=== PATIENT | male | born 1995 | race Caucasian/White ===

== ENCOUNTER 2022-11-10 07:36 | Emergency (ER) | payer MEDICAID, OTHER ==
[~2022-11-10] VITALS: Ht 172.7 cm; Wt 68.2 kg
[2022-11-10 08:55] LABS: HEMATOCRIT 41.5 % (42.0-52.0); MEAN CORPUSCULAR HEMOGLOBIN 30.3 pg (27.0-33.0); MEAN CORPUSCULAR HGB CONC 33.7 g/dl (32.0-36.5); MEAN CORPUSCULAR VOLUME 89.8 fl (80.0-96.0); PLATELET COUNT, AUTOMATED 276 10^3/uL (150-450); RED BLOOD COUNT 4.62 10^6/uL (4.30-6.10); WHITE BLOOD COUNT 11.3 10^3/uL (4.0-10.0)
[2022-11-10 09:17] LABS: ETHYL ALCOHOL (ETHANOL) 0.003 % (0.000-0.010)
[2022-11-10 09:18] LABS: ACETAMINOPHEN LEVEL < 2.0 UG/ML (10.0-20.0)
[2022-11-10 09:19] LABS: ALBUMIN 4.4 G/DL (3.2-5.2); ALKALINE PHOSPHATASE 48 U/L (46-116); ALT/SGPT 28 U/L (7.0-40); AST/SGOT 38 U/L (<34); BILIRUBIN,DIRECT 0.3 MG/DL (<0.4); BILIRUBIN,TOTAL 0.8 MG/DL (0.3-1.2); BLOOD UREA NITROGEN 15 MG/DL (9-23); CALCIUM LEVEL 9.7 MG/DL (8.5-10.1); CARBON DIOXIDE LEVEL 26 MMOL/L (20-31); CHLORIDE LEVEL 108 MMOL/L (98-107); CREATININE FOR GFR 0.81 MG/DL (0.70-1.30); GLOMERULAR FILTRATION RATE > 60.0 (>60); GLUCOSE, FASTING 95 MG/DL (60-100); POTASSIUM SERUM 4.2 MMOL/L (3.5-5.1); SALICYLATE LEVEL < 3.0 MG/DL (<30); SODIUM LEVEL 141 MMOL/L (136-145); TOTAL PROTEIN 7.3 G/DL (5.7-8.2)
[2022-11-10 09:21] LABS: THYROID STIMULATING HORMONE 1.822 uIU/ML (0.55-4.78)
[2022-11-10 12:38] LABS: BARBITURATES URINE NEGATIVE (NEGATIVE); BENZODIAZEPINES URINE NEGATIVE (NEGATIVE); COCAINE METABOLITE URINE NEGATIVE (NEGATIVE); METHADONE URINE NEGATIVE (NEGATIVE); OPIATES URINE NEGATIVE (NEGATIVE); PHENCYCLIDINE URINE NEGATIVE (NEGATIVE)
[2022-11-10 12:39] LABS: AMPHETAMINES LEVEL URINE POSITIVE (NEGATIVE); CANNABINOIDS URINE POSITIVE (NEGATIVE)
[2022-11-11] MEDS ORDERED: IBUP200C28 PO (08:24)
[2022-11-11] MEDS ORDERED: HOME MED LIST COMPLETE! XX SCH (08:25)
[2022-11-11] MEDS ORDERED: ACETAMINOPHEN 325 MG TAB PO ONE (16:40)
[2022-11-11 17:58] VITALS: BP 133/75; TEMP 97.6; O2SAT 100
== END 2022-11-11 18:02 | disposition home or self-care (01) ==
LOC: M ED 07:36
DX: F19.159 Other psychoactive substance abuse with psychoactive substance-induced psychotic disorder, unspecified (principal); F15.10 Other stimulant abuse, uncomplicated; F12.10 Cannabis abuse, uncomplicated; Z79.1 Long term (current) use of non-steroidal anti-inflammatories (NSAID)

== ENCOUNTER 2023-06-16 15:49 | Inpatient (IN) | payer OTHER ==
[~2023-06-16] VITALS: Ht 180.3 cm; Wt 68.4 kg
[~2023-06-16 15:49] MED LIST: IBUP200C28 PO
[2023-06-16 16:45] LABS: HEMATOCRIT 44.5 % (42.0-52.0); HEMOGLOBIN 14.9 g/dl (13.5-17.5); MEAN CORPUSCULAR HEMOGLOBIN 29.7 pg (27.0-33.0); MEAN CORPUSCULAR HGB CONC 33.5 g/dl (32.0-36.5); MEAN CORPUSCULAR VOLUME 88.8 fl (80.0-96.0); PLATELET COUNT, AUTOMATED 320 10^3/uL (150-450); RED BLOOD COUNT 5.01 10^6/uL (4.30-6.10); WHITE BLOOD COUNT 9.2 10^3/uL (4.0-10.0)
[2023-06-16 17:03] LABS: BARBITURATES URINE NEGATIVE (NEGATIVE); BENZODIAZEPINES URINE NEGATIVE (NEGATIVE); COCAINE METABOLITE URINE NEGATIVE (NEGATIVE); METHADONE URINE NEGATIVE (NEGATIVE)
[2023-06-16 17:04] LABS: OPIATES URINE NEGATIVE (NEGATIVE); PHENCYCLIDINE URINE NEGATIVE (NEGATIVE)
[2023-06-16 17:07] LABS: AMPHETAMINES LEVEL URINE POSITIVE (NEGATIVE); CANNABINOIDS URINE POSITIVE (NEGATIVE)
[2023-06-16 17:09] LABS: ETHYL ALCOHOL (ETHANOL) 0.006 % (0.000-0.010)
[2023-06-16 17:11] LABS: ALBUMIN 4.4 G/DL (3.2-5.2); ALKALINE PHOSPHATASE 82 U/L (46-116); ALT/SGPT 27 U/L (7.0-40); AST/SGOT 34 U/L (<34); BILIRUBIN,DIRECT 0.2 MG/DL (<0.4); BILIRUBIN,TOTAL 0.8 MG/DL (0.3-1.2); BLOOD UREA NITROGEN 15 MG/DL (9-23); CALCIUM LEVEL 10.1 MG/DL (8.5-10.1); CARBON DIOXIDE LEVEL 28 MMOL/L (20-31); CHLORIDE LEVEL 104 MMOL/L (98-107); CREATININE FOR GFR 0.73 MG/DL (0.70-1.30); GLOMERULAR FILTRATION RATE > 60.0 (>60); GLUCOSE, FASTING 106 MG/DL (60-100); POTASSIUM SERUM 3.8 MMOL/L (3.5-5.1); SALICYLATE LEVEL < 3.0 MG/DL (<30); SODIUM LEVEL 139 MMOL/L (136-145); TOTAL PROTEIN 8.1 G/DL (5.7-8.2)
[2023-06-16 17:13] LABS: THYROID STIMULATING HORMONE 0.951 uIU/ML (0.55-4.78)
[2023-06-16] MEDS ORDERED: SUMA25TA3 PO (17:16)
[2023-06-16] MEDS ORDERED: CETI-24 PO (17:16)
[2023-06-16] MEDS ORDERED: HOME MED LIST COMPLETE! XX SCH (17:20)
[2023-06-16] MEDS: NICOTINE 14 MG/24 HR TRANSDERMAL TD ONE (17:34)
[2023-06-16] MEDS: LORazepam 2 MG TAB PO STA (21:42)
[2023-06-17] MEDS ORDERED: MAALOX 30 ML SUSP *UDC PO PRN (15:45)
[2023-06-17] MEDS ORDERED: diphenhydrAMINE 25MG CAP PO PRN (15:45)
[2023-06-17] MEDS ORDERED: MOM 30ML SUSPENSION UDC PO PRN (15:45)
[2023-06-17] MEDS: OLANZapine ORAL DISINTEGRATING TAB 5MG PO PRN (16:25)
[2023-06-17] MEDS: IBUPROFEN 400MG TAB PO PRN (16:28)
[2023-06-17] MEDS: NICOTINE 14 MG/24 HR TRANSDERMAL TD SCH (17:08)
[2023-06-18] MEDS ORDERED: SUMAtriptan SUCCINATE 25 MG TAB PO PRN (08:10)
[2023-06-18] MEDS: ACETAMINOPHEN TAB 650MG DOSE (2X325MG) PO PRN (11:55)
[2023-06-18 14:18] VITALS: BP 133/77; TEMP 98.7; O2SAT 98
[2023-06-18] MEDS: traZODone 50 MG TAB PO PRN (20:16)
[2023-06-18] MEDS: NICOTINE 21MG/24HR 1 EA TRANSDERMAL TD SCH (20:34)
[2023-06-19 06:48] VITALS: BP 121/69; TEMP 97.3; O2SAT 99
[2023-06-19 16:12] VITALS: BP 146/71; TEMP 98.1; O2SAT 100
[2023-06-19] MEDS: risperiDONE 3 MG TAB PO SCH (20:08)
[2023-06-20 16:21] VITALS: BP 131/64; TEMP 98.6; O2SAT 100
[2023-06-21 06:45] VITALS: BP 110/54; TEMP 97.6; O2SAT 100
[2023-06-21 07:02] LABS: CHOLESTEROL RISK RATIO 4.5 (<5); HDL CHOLESTEROL 37.5 MG/DL (>40); LDL CHOLESTEROL 106.3 MG/DL (<100); NON-HDL-C 131.5 MG/DL
[2023-06-21 16:11] VITALS: BP 128/78; TEMP 98.5; O2SAT 97
[2023-06-21 16:20] VITALS: BP 134/65; TEMP 97.9; O2SAT 100
[2023-06-22 06:42] VITALS: BP 122/58; TEMP 98.1; O2SAT 98
[2023-06-22] MEDS ORDERED: BENZTROPINE 1 MG TAB PO PRN (09:40)
[2023-06-22 16:24] VITALS: BP 134/82; TEMP 98.4; O2SAT 100
[2023-06-23 06:24] VITALS: BP 116/67; TEMP 97; O2SAT 98
[2023-06-23] MEDS ORDERED: NICO21PAT TD (09:21)
[2023-06-23] MEDS ORDERED: BENZ1TAB5 PO (09:21)
[2023-06-23] MEDS ORDERED: RISP3TAB20 PO (09:21)
[2023-06-23] MEDS ORDERED: TRAZ-252 PO (09:22)
== END 2023-06-23 13:25 | disposition home or self-care (01) | DRG 751 ==
LOC: M ED 15:49 → M ED INP 06-17 15:44 → M PSY 06-18 14:51
PROVIDERS: ADMIT Student in an Organized Health Care Education/Training Program; ATTEND Student in an Organized Health Care Education/Training Program
DX: F29 Unspecified psychosis not due to a substance or known physiological condition (principal); R45.850 Homicidal ideations; R45.851 Suicidal ideations; F12.90 Cannabis use, unspecified, uncomplicated; F17.200 Nicotine dependence, unspecified, uncomplicated; F15.90 Other stimulant use, unspecified, uncomplicated; Z79.899 Other long term (current) drug therapy; F90.9 Attention-deficit hyperactivity disorder, unspecified type; F41.9 Anxiety disorder, unspecified

== ENCOUNTER 2024-11-14 20:14 | Emergency (ER) | payer MEDICAID, OTHER ==
[~2024-11-14] VITALS: Ht 172.7 cm; Wt 86.4 kg
[~2024-11-14 20:14] MED LIST changes: +BENZ1TAB5 PO; +CETI-24 PO; +NICO21PAT TD; +RISP3TAB20 PO; +SUMA25TA3 PO; +TRAZ-252 PO
[2024-11-14] MEDS ORDERED: WELLTAB40 PO (20:32)
[2024-11-14] MEDS ORDERED: SUBO12MI SL (20:32)
[2024-11-14] MEDS: ONDANSETRON 4MG 2ML VIAL IV ONE (20:54)
[2024-11-14] MEDS: NS (Normal Saline) 0.9% 1,000 ML IV ONE (20:54)
[2024-11-14 21:03] LABS: BASO # 0.1 10^3/uL (0.0-0.2); BASO % 0.4 % (0.0-1.0); EOS # 0.1 10^3/uL (0.0-0.5); EOS % 1.1 % (0.0-3.0); LYMPH # 3.9 10^3/uL (1.5-5.0); LYMPH % 34.3 % (24.0-44.0); MONO # 0.9 10^3/uL (0.0-0.8); MONO % 8.2 % (2.0-8.0); NEUTROPHILS # 6.3 10^3/uL (1.5-8.5); NEUTROPHILS % 55.8 % (36.0-66.0); PLATELET COUNT, AUTOMATED 293 10^3/uL (150-450)
[2024-11-14 21:39] LABS: AMPHETAMINES LEVEL URINE NEGATIVE (NEGATIVE); BARBITURATES URINE NEGATIVE (NEGATIVE); COCAINE METABOLITE URINE NEGATIVE (NEGATIVE)
[2024-11-14 21:40] LABS: METHADONE URINE NEGATIVE (NEGATIVE); OPIATES URINE NEGATIVE (NEGATIVE); PHENCYCLIDINE URINE NEGATIVE (NEGATIVE)
[2024-11-14 21:41] LABS: BENZODIAZEPINES URINE NEGATIVE (NEGATIVE); CANNABINOIDS URINE POSITIVE (NEGATIVE)
[2024-11-14 21:55] LABS: CK-MB VALUE MASS 2.5 NG/ML (<3.6)
[2024-11-14 21:56] LABS: CPK CREATINE PHOSPHOKINASE 223.0 U/L (46-171); MB/CK RELATIVE INDEX 1.12 (< OR =4)
[2024-11-14 21:57] LABS: CALCIUM LEVEL 9.4 MG/DL (8.5-10.1); CARBON DIOXIDE LEVEL 25.0 MMOL/L (20-31); CHLORIDE LEVEL 105.0 MMOL/L (98-107); CREATININE FOR GFR 1.21 MG/DL (0.70-1.30); GLOMERULAR FILTRATION RATE 83.1 (>60); MAGNESIUM LEVEL 2.0 MG/DL (1.8-2.4); POTASSIUM SERUM 3.9 MMOL/L (3.5-5.1); SODIUM LEVEL 142.0 MMOL/L (136-145)
[2024-11-14 22:30] VITALS: BP 116/71; TEMP 97.7; O2SAT 97
== END 2024-11-14 22:47 | disposition home or self-care (01) ==
LOC: M ED 20:14
DX: F19.10 Other psychoactive substance abuse, uncomplicated (principal); F32.A Depression, unspecified; F12.10 Cannabis abuse, uncomplicated; F17.200 Nicotine dependence, unspecified, uncomplicated; F90.9 Attention-deficit hyperactivity disorder, unspecified type; Z79.899 Other long term (current) drug therapy
CPT/HCPCS: 71045; 80048; 80307; 82550; 82553; 83735; 84484; 85025; 93005; 96374; 99284; J2405